=== PATIENT | male | born 1965 | race Caucasian/White ===

== ENCOUNTER 2021-01-26 00:40 | Emergency (ER) | payer OTHER, MEDICAID, SELFPAY ==
--- NOTE | 2021-01-26 00:50 | DI.RAD.S_ITS ---
PROCEDURE: XR CHEST 2V INDICATIONS: cough/congestion TECHNIQUE: 2 views of the chest were acquired. COMPARISON: None. FINDINGS: Surgical changes and devices: None. Lungs and pleura: Increased opacification noted in the right perihilar region. No pleural effusions or pneumothorax. Mediastinum: Mediastinal contours are normal. Heart size is normal. Bones and chest wall: No suspicious bony abnormalities. Soft tissues appear unremarkable. IMPRESSION: Increased right perihilar opacification concerning for infiltrate. Dictated by: Loreto Veras MD, PhD on 01/26/2021 at 9:11 Approved by: Loreto Veras MD, PhD on 01/26/2021 at 9:11
[2021-01-26 00:52] VITALS: BP 130/84; PULSE 75; RESP 18; TEMP 37.1; O2SAT 99
[2021-01-26 01:09] LABS: COVID19 -Nasal RAPID Negative (Negative)
--- NOTE | 2021-01-26 01:26 | ED.URI ---
HPI - URI/Sore Throat General Chief Complaint: Upper Respiratory Symptoms Stated Complaint: coughing, congestion, nasal infect Time Seen by Provider: 01/26/21 01:04 Source: patient Mode of arrival: Ambulatory History of Present Illness HPI Narrative: 55-year-old gentleman with no significant medical history presents with a week of upper respiratory symptoms including runny nose mild cough no fevers no body aches no change to taste or smell. No nausea vomiting or diarrhea. He is fully vaccinated. He and his significant other were planning on traveling to their grandchild's birthday and were concerned that despite vaccination they may have COVID and he comes in for reassurance. Review of Systems Review of Systems Narrative: Remainder of complete review of systems is otherwise unremarkable except for that included in the HPI. Exam Narrative Exam Narrative: General: Healthy appearing, in no acute distress. Able to give a complete and coherent history. Well-nourished well-developed HEENT: Moist mucous membranes, normal sclera with reactive pupils, Respiratory: Lungs are clear to auscultation, no wheezing no rales no rhonchi. Full and symmetrical air movement Cardiac: Regular rate and rhythm no murmurs no bruits Abdomen: Soft, nontender, good bowel tones, no flank pain Skin: Warm and dry, no rashes Neurologic: Grossly neurologically intact with no obvious asymmetries or abnormalities Extremities: No trauma, Psych: Cooperative, appropriate insight and affect Initial Vital Signs Initial Vital Signs: Vital Signs Temperature 98.7 F 01/26/21 00:52 Pulse Rate 75 01/26/21 00:52 Respiratory Rate 18 01/26/21 00:52 Blood Pressure 130/84 01/26/21 00:52 Pulse Oximetry 99 01/26/21 00:52 Course Orders Ordered: ED Orders 01/26/21 00:50 XR chest 2V Stat 01/26/21 00:53 COVID19 -Nasal swab/Pre-Proc Stat Vital Signs Vital signs: Vital Signs - 8 hr 01/26/21 00:52 Temperature 98.7 F Pulse Rate 75 Respiratory Rate 18 Blood Pressure 130/84 Pulse Oximetry 99 MDM - URI/Sore Throat Lab Data Labs: Lab Results 01/26/21 Range/Units 00:53 SARS-CoV-2 (PCR) Negative (Negative) MDM Narrative Medical decision making narrative: 55-year-old gentleman with 5 days of mild upper respiratory complaints. COVID test is negative today. Chest x-ray does not suggest consolidated pneumonia. Vital signs are unremarkable. Additional laboratory workup was not felt to be required at this time. No evidence of bacterial pneumonia or complicated pulmonary issues. Reassurance is given and patient is safe for discharge Discharge Plan Departure Patient Disposition: Home Clinical Impression: Upper respiratory infection Qualifiers: URI type: unspecified viral URI Qualified Code(s): J06.9 - Acute upper respiratory infection, unspecified Instructions: DI for Viral Upper Respiratory Infection -- Adult Activity Restrictions/Additional Instructions: Thank you for coming in today You do not have COVID Your clinical exam in your chest x-ray do not suggest a bacterial pneumonia. You do have a virus that is making you cough. It will get better. Fluid, rest, chicken soup and some [id number] cough medicine can all make a nice difference. Thank you for coming in today and I am glad that your COVID test returned negative
== END 2021-01-26 01:56 | disposition home or self-care (01) ==
PROVIDERS: Emergency Provider Emergency Medicine
DX: J06.9 Acute upper respiratory infection, unspecified (principal); R05 Cough; Z20.822 Contact with and (suspected) exposure to COVID-19
CPT/HCPCS: 71046; 87635; 99281; 99283; C9803